=== PATIENT | female | born 1950 | race Caucasian/White ===

== ENCOUNTER → 2017-10-13 | Outpatient (CLI) | payer MEDICARE ==
[~2017-10-13] MED LIST: CALC500T6 PO; CHOL400C10 PO; CINN500C12 PO; FLUV40CA6 PO; GLUC500C29 PO; LEV125 PO; LUTE6CAP11 PO; MULT1CAP59 PO; PER PO; SIMV-54 PO; SOLI10TA8 PO; SPIR25TA78 PO; VESICARE
[2017-10-13 10:36] LABS: INR 1.49
== END ==
LOC: LAB 09:22
PROVIDERS: ATTEND Physician Assistant Surgical
DX: Z51.81 Encounter for therapeutic drug level monitoring (principal); Z79.01 Long term (current) use of anticoagulants; Z96.651 Presence of right artificial knee joint
CPT/HCPCS: 36415; 85610

== ENCOUNTER → 2017-10-17 | Outpatient (CLI) | payer MEDICARE ==
[2017-10-17 10:38] LABS: INR 1.4
== END ==
LOC: LAB 10:12
PROVIDERS: ATTEND Physician Assistant Surgical
DX: Z51.81 Encounter for therapeutic drug level monitoring (principal); Z79.01 Long term (current) use of anticoagulants; Z96.651 Presence of right artificial knee joint
CPT/HCPCS: 36415; 85610

== ENCOUNTER → 2018-06-22 | Outpatient (CLI) | payer MEDICARE ==
--- NOTE | 2018-06-23 10:08 | RADIOLOGY IMAGING REPORT ---
FACILITY: [facility] PATIENT NAME: YAN GARRETT : [id number] MR: [id number] V: [id number] EXAM DATE: [id number] ORDERING PHYSICIAN: KENDALL VILLEDA TECHNOLOGIST: Nova Corrigan PROCEDURE:BILATERAL DIGITAL SCREENING MAMMOGRAM WITH CAD ASSISTED INTERPRETATION & 3D TOMOSYNTHESIS COMPARISON:Prior mammograms 06/16/17, priors to 04/18/2012. INDICATIONS:SCREENING FINDINGS: The breasts have scattered fibroglandular parenchyma densities. There are no mammographic findings concerning for malignancy. No significant interval change. DIAGNOSTIC CATEGORY 1--NEGATIVE. RECOMMENDATIONS: ROUTINE MAMMOGRAM AND CLINICAL EVALUATION IN 1 YR. IMPRESSION: BIRADS 1: Negative. Dictated by: Fausto Mathis on 06/23/2018 at 9:13 Transcribed by: ISIAH on 06/23/2018 at 9:46 Approved by: Fausto Mathis on 06/23/2018 at 10:07 [facility]
== END ==
LOC: MAMO 01:22
PROVIDERS: ATTEND Nurse Practitioner Family
DX: Z12.31 Encounter for screening mammogram for malignant neoplasm of breast (principal); Z80.3 Family history of malignant neoplasm of breast
CPT/HCPCS: 77063; 77067

== ENCOUNTER → 2019-02-23 | Outpatient (CLI) | payer MEDICARE ==
--- NOTE | 2019-02-23 21:39 | RADIOLOGY IMAGING REPORT ---
FACILITY: [facility] PATIENT NAME: Hilda Guerrero : 1950 MR: [id number] V: [id number] EXAM DATE: ORDERING PHYSICIAN: KENDALL ROSARIO TECHNOLOGIST: Location: [facility] [place] Patient: Hilda Guerrero : 1950 Visit/Account:[id number] Date of Sevice: 02/23/2019 ADDENDUM #1 ADDENDUM: Provider called back on 02/25/2019 at 2:10 PM. Findings were relayed to Kendall Rosario at this time sugge sting worrisome for acute proximal tibia fracture. The previous exam on 11/26/2010 shows no focal kylie lity or arthroplasty changes. Report Dictated By: Addison Al at 02/25/2019 2:24 PM Report E-Signed By: Addison Al at 02/25/2019 2:25 PM ORIGINAL REPORT TIBIA FIBULA RIGHT Indication: Pain when standing or walking. Comparison: None available Findings: Two views right tibia and fibula. The posterior medial aspect of the proximal tibia does show a linear lucency just below the tibial co mponent of the knee arthroplasty. No prior exams for comparison. The angioplasty otherwise shows no s equelae or periprosthetic lucencies. No other indication of fracture or dislocation. No bony lesions or periosteal abnormality. Calcaneal spur. Soft tissues are unremarkable. No radiopaque foreign body. IMPRESSION: There is a faint lucency along the posterior medial aspect of the proximal tibia just underneath the tibial component of the knee arthroplasty. As there are no prior exams for comparison, cannot exclude an acute fracture at this time. Attempts to reach a provider for results were unsuccessful. A voicemail was left to contact [facility] for results. Report Dictated By: Addison Al at 02/23/2019 6:51 PM Report E-Signed By: Addison Al at 02/23/2019 9:32 PM WSN:[id number]
== END ==
LOC: RAD 18:04
PROVIDERS: ATTEND Nurse Practitioner Family
DX: M79.604 Pain in right leg (principal)